=== PATIENT | female | born 1985 | race Caucasian/White ===

== ENCOUNTER 2017-06-26 17:02 | Emergency (ER) | payer OTHER ==
[2017-06-26 19:03] LABS: BASOPHIL % 0.2 % (0-2); PLATELET COUNT 399 x10^3mcL (130-400); RED CELL DISTRIBUTION WIDTH 13.3 % (11.5-14.5)
[2017-06-26 19:10] LABS: microscopic required? YES; urine erythrocyte TRACE (NEGATIVE)
[2017-06-26 19:12] LABS: CARBON DIOXIDE 32.7 mmol/L (21-32); CHLORIDE SERUM 103 mmol/L (98-107); CREATININE SERUM 0.8 mg/dL (0.6-1.0); GFR1 > 60 mL/min; GLUCOSE SERUM 105 mg/dL (74-106); POTASSIUM SERUM 3.6 mmol/L (3.5-5.1); SODIUM SERUM 140 mmol/L (136-145)
[2017-06-26 19:16] LABS: ALBUMIN 4.2 g/dL (3.4-5.0); ALKALINE PHOSPHATASE 134 U/L (46-116); ALT/SGPT 84 U/L (14-59); AST/SGOT 32 U/L (15-37); BILIRUBIN TOTAL 0.6 mg/dL (0.20-1.00)
[2017-06-26 21:36] VITALS: BP 105/62
== END 2017-06-26 21:36 | disposition home or self-care (01) ==
LOC: ED 17:02
PROVIDERS: Emergency Medicine
DX: N39.0 Urinary tract infection, site not specified (principal); M54.9 Dorsalgia, unspecified; R31.9 Hematuria, unspecified; E11.9 Type 2 diabetes mellitus without complications
CPT/HCPCS: 83880; J0696; J1885; J7040